=== PATIENT | male | born 2005 | race Caucasian/White ===

== ENCOUNTER 2024-06-20 04:30 | Emergency (ER) | payer BC, OTHER ==
[2024-06-20 04:39] VITALS: TEMP 98.3; BMI 34.1
[2024-06-20 05:56] LABS: BASO % 0.4 % (0-2.0); EOS % 0.2 % (0-4.5); HEMATOCRIT 43.3 % (35.4-49); HEMOGLOBIN 14.3 GM/dL (11.7-16.9); LYMPH % 14.2 % (8-40); MCH 27.3 pg (25.7-33.7); MCHC 33.1 g/dl (32.0-35.9); MEAN CELL VOLUME 82.5 fl (80-96); MEAN PLT VOLUME 9.3 fl (7.5-11.1); NEUT % 80.2 % (42.8-82.8); PLATELET COUNT 310 10^3/uL (134-434); RBC 5.25 M/mm3 (4.00-5.60); RDW 15.4 % (11.9-15.9); WHITE BLOOD COUNT 16.1 K/mm3 (4.0-10.0)
[2024-06-20 06:19] LABS: POTASSIUM 4.2 mmol/L (3.5-5.1)
[2024-06-20 06:21] LABS: CALCIUM 9.3 mg/dL (8.5-10.1)
[2024-06-20 06:22] LABS: ALBUMIN 3.8 g/dl (3.4-5.0); BLOOD UREA NITROGEN 7.4 mg/dL (7-18)
[2024-06-20 06:25] LABS: CREATININE 1.1 mg/dL (0.55-1.3)
[2024-06-20 06:27] LABS: BILIRUBIN,TOTAL 0.2 mg/dL (0.2-1); TOT PROT 7.4 g/dl (6.4-8.2)
[2024-06-20 07:41] VITALS: BP 110/70; PULSE 81; RESP 16
== END 2024-06-20 07:15 | disposition home or self-care (01) ==
LOC: JER 04:30
DX: R07.89 Other chest pain (principal); R06.02 Shortness of breath; R42 Dizziness and giddiness; R61 Generalized hyperhidrosis
CPT/HCPCS: 36415; 71045-TC-FY; 80053; 83735; 84439; 84443; 84484; 85025; 93005; 93010; 99285-25